=== PATIENT | male | born 1965 | race Caucasian/White ===

== ENCOUNTER 2016-05-11 11:05 | Emergency (ER) | payer MEDICAID ==
--- NOTE | 2016-05-11 11:15 | ER Document Report ---
ED Medical Screen (RME) - General Stated Complaint: STOMACH PAIN Time seen by provider: 11:13 Notes: Patient reports intermittent right-sided abdominal pain for the past month. States he has been having some vomiting, but denies diarrhea, denies fever. Denies dysuria. I have greeted and performed a rapid initial assessment of this patient. A comprehensive ED assessment and evaluation of the patient, analysis of test results and completion of the medical decision making process will be conducted by additional ED providers. TRAVEL OUTSIDE OF THE [place] IN LAST 30 DAYS: No - Related Data Allergies/Adverse Reactions: codeine [Codeine] Allergy (Verified 05/11/16 11:12) Penicillins Allergy (Verified 05/11/16 11:12) Past Medical History Renal/ Medical History: Reports: Hx Kidney Stones GI Medical History: Reports: Hx Cirrhosis, Hx Hepatitis Infectious Medical History: Reports: Hx Hepatitis - Immunizations Hx Diphtheria, Pertussis, Tetanus Vaccination: Yes - 2011 Physical Exam - Abdominal Inspection: Normal Bowel sounds: Normal Tenderness: Tender - right mid abdomen
[2016-05-11 12:03] LABS: ABSOLUTE LYMPHOCYTES (AUTO) 2.4 10^3/uL (0.5-4.7); ABSOLUTE MONOCYTES (AUTO) 0.5 10^3/uL (0.1-1.4); ABSOLUTE NEUT (AUTO) 3.3 10^3/uL (1.7-8.2); BASOPHILS % (AUTO) 0.1 % (0-2); EOSINOPHILS % (AUTO) 0.7 % (0-6); HEMATOCRIT 47.9 % (37.9-51.0); HEMOGLOBIN 16.4 g/dL (13.5-17.0); HGB HCT DIFFERENCE 1.3; LYMPHOCYTES % (AUTO) 38.5 % (13-45); MEAN CORPUSCULAR HEMOGLOBIN 35.2 pg (27.0-33.4); MEAN CORPUSCULAR HGB CONC 34.3 g/dL (32.0-36.0); MEAN CORPUSCULAR VOLUME 103 fl (80-97); MONOCYTES % (AUTO) 8.2 % (3-13); RED BLOOD COUNT 4.67 10^6/uL (4.35-5.55); RED CELL DISTRIBUTION WIDTH 14.1 % (11.5-14.0); SEGMENTED NEUTROPHILS % (AUTO) 52.5 % (42-78); WHITE BLOOD COUNT 6.3 10^3/uL (4.0-10.5)
[2016-05-11 12:31] LABS: ALANINE AMINOTRANSFERASE 43 U/L (21-72); ALBUMIN 4.1 g/dL (3.5-5.0); ALKALINE PHOSPHATASE 74 U/L (38-126); ANION GAP 10 (5-19); ASPARTATE AMINO TRANSFERASE 30 U/L (17-59); BILIRUBIN,TOTAL 0.5 mg/dL (0.2-1.3); BLOOD UREA NITROGEN 13 mg/dL (7-20); CALCIUM 9.6 mg/dL (8.4-10.2); CARBON DIOXIDE 28 mmol/L (22-30); CHLORIDE 102 mmol/L (98-107); CREATININE RESULT 0.82 mg/dL (0.52-1.25); GLUCOSE 80 mg/dL (75-110); LIPASE 164.7 U/L (23-300); POTASSIUM 4.1 mmol/L (3.6-5.0); SODIUM 140.3 mmol/L (137-145); TOTAL PROTEIN 6.9 g/dL (6.3-8.2)
[2016-05-11 12:35] LABS: APPEARANCE,URINE CLEAR; BILIRUBIN,URINE NEGATIVE (NEGATIVE); GLUCOSE, URINE NEGATIVE (NEGATIVE); KETONES,URINE NEGATIVE (NEGATIVE); LEUKOCYTE ESTERASE,URINE NEGATIVE (NEGATIVE); NITRITE,URINE NEGATIVE (NEGATIVE); PROTEIN,URINE NEGATIVE (NEGATIVE); URINE SPECIFIC GRAVITY 1.013; UROBILINOGEN,URINE NEGATIVE mg/dL (<2.0)
--- NOTE | 2016-05-11 14:53 | ER Document Report ---
ED GI/ - General Chief Complaint: Abdominal Pain Stated Complaint: STOMACH PAIN Mode of Arrival: Ambulatory Information source: Patient Notes: Patient reports right lower quadrant abdominal tenderness for the past month has been off and on. Patient states that he also feels bloated for the past month. Patient complains of nausea and vomiting 1 episode today. Patient denies any fever or diarrhea. Patient does report decreased appetite. Patient additionally complains of a 40 pound weight gain over the past year. Patient additionally complains of right plantar foot tenderness. Patient states he is getting ready to start a new job and wants to have his abdominal pain checked out and cleared prior to starting his new job. TRAVEL OUTSIDE OF THE [place] IN LAST 30 DAYS: No - HPI Patient complains to provider of: Abdominal pain, Vomiting, Other - Foot pain. No: Testicular pain - 1 Onset: Other - One month Timing/Duration: Waxing and waning Quality of pain: Sharp Pain Level: 3 Location: RLQ Associated symptoms: Loss of appetite, Nausea, Vomiting - Times one episode. denies: Diarrhea, Dysuria, Fever, Urinary hesitancy, Urinary frequency, Urinary retention, Urinary urgency Exacerbated by: Denies Relieved by: Denies Similar symptoms previously: No Recently seen / treated by doctor: No - Related Data Allergies/Adverse Reactions: codeine [Codeine] Allergy (Verified 05/11/16 11:12) Penicillins Allergy (Verified 05/11/16 11:12) Past Medical History - General Information source: Patient - Social History Smoking Status: Current Every Day Smoker Chew tobacco use (# tins/day): No Frequency of alcohol use: None Drug Abuse: None Occupation: none Family History: Reviewed & Not Pertinent Patient has suicidal ideation: No Patient has homicidal ideation: No Renal/ Medical History: Reports: Hx Kidney Stones. Denies: Hx Peritoneal Dialysis GI Medical History: Reports: Hx Cirrhosis, Hx Hepatitis - Treated with harvoni last year Infectious Medical History: Reports: Hx Hepatitis Past Surgical History: Reports: Other - Liver biopsy - Immunizations Hx Diphtheria, Pertussis, Tetanus Vaccination: Yes - 2011 Review of Systems - Review of Systems Constitutional: No symptoms reported. denies: Fever EENT: No symptoms reported Cardiovascular: No symptoms reported. denies: Chest pain Respiratory: No symptoms reported. denies: Cough, Short of breath Gastrointestinal: Abdominal pain, Vomiting, Poor appetite. denies: Diarrhea Genitourinary: No symptoms reported. denies: Dysuria Male Genitourinary: No symptoms reported Musculoskeletal: No symptoms reported. denies: Back pain Skin: No symptoms reported Hematologic/Lymphatic: No symptoms reported Neurological/Psychological: No symptoms reported Physical Exam - Vital signs Vitals: Temp Pulse Resp BP Pulse Ox 97.6 F 83 18 131/82 H 98 05/11/16 11:14 05/11/16 11:14 05/11/16 11:14 05/11/16 11:14 05/11/16 11:14 - General General appearance: Appears well, Alert In distress: None - HEENT Head: Normocephalic, Atraumatic Eyes: Normal Nasal: Normal Mouth/Lips: Normal Neck: Normal, Supple. No: Lymphadenopathy - Respiratory Respiratory status: No respiratory distress Chest status: Nontender Breath sounds: Normal. No: Rales, Rhonchi, Stridor, Wheezing Chest palpation: Normal - Cardiovascular Rhythm: Regular Heart sounds: S1 appreciated, S2 appreciated Murmur: No - Abdominal Inspection: Normal. No: Obese Distension: No distension Bowel sounds: Normal Tenderness: Tender - Right lower quadrant Organomegaly: No organomegaly - Back Back: Normal, Nontender. No: CVA tenderness - Extremities General upper extremity: Normal inspection, Normal ROM General lower extremity: Normal inspection, Tender - Mild tenderness along plantar surface of her right foot, Normal ROM Foot: Tender - Plantar surface of right foot under lying fifth metatarsal, normal skin color and temperature overlying foot - Neurological Neuro grossly intact: Yes Cognition: Normal [place] Coma Scale Eye Opening: Spontaneous [place] Coma Scale Verbal: Oriented [place] Coma Scale Motor: Obeys Commands [place] Coma Scale Total: 15 - Skin Skin Temperature: Warm Skin Moisture: Dry Skin Color: Normal Course - Re-evaluation Re-evalutation: 05/11/16 14:51 Patient declines stain for test results and states that he has to go home and take care of his daughter. Patient states that he plans to see his primary doctor in 3 days. Patient states that he cannot stay here laying in the bed because he has concerns about jaky MRSA. Attempted to reassure patient that rooms are clean the prior to putting patient's in rooms. Patient insists that he needs to go take care of his dog and states that he will return if he has any new or worsening symptoms. The patient has decided not to proceed with further recommended testing or treatment to determine the cause of her symptoms. The risk and alternatives to the recommendation were discussed the patient voiced understanding. The patient appears clinically to have the capacity to make this decision. The patient was instructed that they could return to the ER at any time to complete the testing or treatment. - Vital Signs Vital signs: Temp Pulse Resp BP Pulse Ox 98.6 F 65 14 122/71 100 05/11/16 14:56 05/11/16 14:56 05/11/16 14:56 05/11/16 14:56 05/11/16 14:56 - Laboratory Result Diagrams: 05/11/16 11:38 05/11/16 11:38 Laboratory results interpreted by me: 05/11/16 05/11/16 11:38 11:38 MCV 103 H MCH 35.2 H RDW 14.1 H Plt Count 149 L Ammonia < 8.7 L Discharge - Discharge Clinical Impression: Tinea cruris Abdominal pain Qualifiers: Abdominal location: right lower quadrant Qualified Code(s): R10.31 - Right lower quadrant pain Disposition: AGAINST MEDICAL ADVICE Instructions: Abdominal Pain ([facility]), Ringworm (Tinea Corporis) ([facility]) Additional Instructions: Return immediately for any new or worsening symptoms or if you would like to continue with your evaluation Followup with your primary care provider, call tomorrow to make a followup appointment Prescriptions: Ketoconazole [Nizoral] 1 applic TP DAILY #30 [email or web address]. Referrals: MANDO AYOUB MD [ACTIVE STAFF] - Follow up as needed
[2016-05-11 14:57] VITALS: BP 122/71
== END 2016-05-11 14:59 | disposition left against medical advice (07) ==
LOC: ER 11:05
DX: R10.31 Right lower quadrant pain (principal); B35.6 Tinea cruris; R11.2 Nausea with vomiting, unspecified; R63.0 Anorexia; R14.0 Abdominal distension (gaseous); R63.5 Abnormal weight gain; Z68.24 Body mass index [BMI] 24.0-24.9, adult; F17.200 Nicotine dependence, unspecified, uncomplicated; Z88.5 Allergy status to narcotic agent; Z88.0 Allergy status to penicillin; Z87.442 Personal history of urinary calculi; Z87.19 Personal history of other diseases of the digestive system; Z53.29 Procedure and treatment not carried out because of patient's decision for other reasons
CPT/HCPCS: 36415; 74022; 74176; 80053; 81001; 82140; 83690; 85025; 99284

== ENCOUNTER → 2016-05-15 | Outpatient (CLI) | payer MEDICAID ==
[2016-05-15 11:49] LABS: ABSOLUTE LYMPHOCYTES (AUTO) 2.4 10^3/uL (0.5-4.7); ABSOLUTE MONOCYTES (AUTO) 0.5 10^3/uL (0.1-1.4); ABSOLUTE NEUT (AUTO) 3.3 10^3/uL (1.7-8.2); BASOPHILS % (AUTO) 0.2 % (0-2); EOSINOPHILS % (AUTO) 0.5 % (0-6); HEMATOCRIT 47.5 % (37.9-51.0); HGB HCT DIFFERENCE 0.5; LYMPHOCYTES % (AUTO) 38.5 % (13-45); MEAN CORPUSCULAR HEMOGLOBIN 34.7 pg (27.0-33.4); MEAN CORPUSCULAR HGB CONC 33.8 g/dL (32.0-36.0); MEAN CORPUSCULAR VOLUME 103 fl (80-97); MONOCYTES % (AUTO) 7.4 % (3-13); RED BLOOD COUNT 4.62 10^6/uL (4.35-5.55); RED CELL DISTRIBUTION WIDTH 13.6 % (11.5-14.0); SEGMENTED NEUTROPHILS % (AUTO) 53.4 % (42-78); WHITE BLOOD COUNT 6.2 10^3/uL (4.0-10.5)
[2016-05-15 12:05] LABS: ALANINE AMINOTRANSFERASE 40 U/L (21-72); ALBUMIN 4.1 g/dL (3.5-5.0); ALKALINE PHOSPHATASE 70 U/L (38-126); ANION GAP 10 (5-19); ASPARTATE AMINO TRANSFERASE 27 U/L (17-59); BILIRUBIN,TOTAL 0.6 mg/dL (0.2-1.3); BLOOD UREA NITROGEN 11 mg/dL (7-20); CALCIUM 9.3 mg/dL (8.4-10.2); CARBON DIOXIDE 27 mmol/L (22-30); CHLORIDE 103 mmol/L (98-107); CREATININE RESULT 0.84 mg/dL (0.52-1.25); GLUCOSE 80 mg/dL (75-110); POTASSIUM 4.5 mmol/L (3.6-5.0); SODIUM 140.3 mmol/L (137-145); TOTAL PROTEIN 6.9 g/dL (6.3-8.2)
== END ==
LOC: OD 10:40
PROVIDERS: ATTEND Family Medicine Geriatric Medicine
DX: B19.20 Unspecified viral hepatitis C without hepatic coma (principal); J44.9 Chronic obstructive pulmonary disease, unspecified; Z79.899 Other long term (current) drug therapy
CPT/HCPCS: 36415; 80053; 85025

== ENCOUNTER → 2016-06-16 | Outpatient (CLI) | payer MEDICAID | LOC: OD 14:45 | PROVIDERS: ATTEND Family Medicine Geriatric Medicine | DX: R10.32 Left lower quadrant pain (principal) | CPT/HCPCS: 74022 ==

== ENCOUNTER → 2016-06-16 | Outpatient (CLI) | payer MEDICAID ==
[2016-06-16 16:12] LABS: APPEARANCE,URINE CLEAR; BILIRUBIN,URINE NEGATIVE (NEGATIVE); GLUCOSE, URINE NEGATIVE (NEGATIVE); KETONES,URINE NEGATIVE (NEGATIVE); LEUKOCYTE ESTERASE,URINE NEGATIVE (NEGATIVE); NITRITE,URINE NEGATIVE (NEGATIVE); PROTEIN,URINE NEGATIVE (NEGATIVE); URINE SPECIFIC GRAVITY 1.021; UROBILINOGEN,URINE NEGATIVE mg/dL (<2.0)
[2016-06-16 18:23] LABS: FOLATE 8.62 ng/mL (>2.76)
[2016-06-19 07:33] LABS: HOMOCYST(E)INE PLASMA 14.4 umol/L (0.0-15.0)
== END ==
LOC: OD 15:00
PROVIDERS: ATTEND Family Medicine Geriatric Medicine
DX: D53.9 Nutritional anemia, unspecified (principal); Z79.899 Other long term (current) drug therapy; N39.0 Urinary tract infection, site not specified
CPT/HCPCS: 36415; 81001; 82607; 82746; 83090; 83921; 84443; 87086

== ENCOUNTER → 2016-07-31 | Outpatient (CLI) | payer MEDICAID ==
--- NOTE | 2016-07-31 15:05 | RADIOLOGY REPORT (SQ) ---
EXAM DESCRIPTION: CT ABD/PELVIS COMBO COMPLETED DATE/TIME: 07/31/2016 2:28 pm REASON FOR STUDY: OTHER MICROSCOPIC HEMATURIA R31.29 OTHER MICROSCOPIC HEMATURIA N40.1 BENIGN PROS TATIC HYPERPLASIA WITH LOWER URINARY TRACT COMPARISON: None. TECHNIQUE: CT scan of the abdomen and pelvis performed with and without intravenous contrast, and wi thout oral contrast. Contrasted imaging performed helical scanning technique and dynamic intravenous contrast injection. Images reviewed with lung, soft tissue, and bone windows. Reconstructed coronal a nd sagittal MPR images reviewed. Delayed images for evaluation of the urinary system also acquired. A ll images stored on PACS. All CT scanners at this facility use dose modulation, iterative reconstruction, and/or weight based d osing when appropriate to reduce radiation dose to as low as reasonably achievable (ALARA). [facility]: Dose Right [facility]: CareDose [facility]: Dose Right [facility]: Teradose 4D [facility]: Bonfaire CONTRAST TYPE AND DOSE: 74 mL Isovue 370- low osmolar. RENAL FUNCTION: Creatinine 0.8 RADIATION DOSE: 26.95 mGy. LIMITATIONS: None. FINDINGS: NON-CONTRASTED IMAGING: No significant renal or bladder calcifications. No other significa nt organ calcifications. POST-CONTRASTED IMAGING: LOWER CHEST: No significant findings. No nodules or infiltrates. LIVER: Normal size. No masses or dilated ducts. SPLEEN: Normal size. No focal lesions. PANCREAS: No masses. No significant calcifications. No adjacent inflammation or peripancreatic fluid collections. Pancreatic duct not dilated. GALLBLADDER: No identified stones by CT criteria. No inflammatory changes to suggest cholecystitis. ADRENAL GLANDS: No significant masses or asymmetry. RIGHT KIDNEY AND URETER: No solid masses. No significant calcifications. No hydronephrosis or hyd roureter. LEFT KIDNEY AND URETER: No solid masses. No significant calcifications. No hydronephrosis or hydr oureter. AORTA AND VESSELS: No aneurysm. No dissection. Renal arteries, SMA, celiac without stenosis. RETROPERITONEUM: No retroperitoneal adenopathy, hemorrhage or masses. BOWEL AND PERITONEAL CAVITY: No masses or inflammatory changes. No free fluid or peritoneal masses. Occasional sigmoid diverticula. APPENDIX: Normal. PELVIS: The urinary bladder is normal. Prostate gland and seminal vesicles are normal. There is no free fluid. ABDOMINAL WALL: No masses. No hernias. BONES: No significant or acute findings. OTHER: No other significant finding. IMPRESSION: Minimal sigmoid diverticulosis with no acute inflammatory changes. There are no finding s in the abdomen or pelvis that explain the patient's microscopic hematuria. TECHNICAL DOCUMENTATION: JOB ID: [id number] Quality ID # [id number]: Final reports with documentation of one or more dose reduction techniques (e.g., Au tomated exposure control, adjustment of the mA and/or kV according to patient size, use of iterative reconstruction technique) 2010 [employer]- All Rights Reserved
== END ==
LOC: RAD 13:22
PROVIDERS: ATTEND Family Medicine Geriatric Medicine
DX: N40.1 Benign prostatic hyperplasia with lower urinary tract symptoms (principal); R31.29 Other microscopic hematuria
CPT/HCPCS: 74178; 82565

== ENCOUNTER 2016-12-14 13:45 | Emergency (ER) | payer MEDICAID ==
[2016-12-14 13:54] VITALS: BP 119/81
--- NOTE | 2016-12-14 14:18 | ER Document Report ---
ED General - General Chief Complaint: Skin Sore(s) Stated Complaint: POSSIBLE ABSCESS ON FACE Time Seen by Provider: 12/14/16 14:09 Mode of Arrival: Ambulatory Information source: Patient, Relative Notes: Patient is a 51-year-old white male comes to emergency room with a lesion on his left upper lip underneath his mustache. Patient states that his been there off and on for the past 2 months and seems to materialize when he gets stressed acidic type foods. 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 Patient denies any other medical problems. TRAVEL OUTSIDE OF THE [place] IN LAST 30 DAYS: No - HPI Onset: Other - Off and on for the past month and a half Onset/Duration: Intermittent, Waxing and waning Quality of pain: Achy, Throbbing Severity: Moderate Pain Level: 2 Associated symptoms: None Exacerbated by: Denies, Other - Stress/acidic food Relieved by: Denies Similar symptoms previously: No Recently seen / treated by doctor: No - Related Data Allergies/Adverse Reactions: codeine [Codeine] Allergy (Verified 12/14/16 13:53) Penicillins Allergy (Verified 12/14/16 13:53) Past Medical History - General Information source: Patient, Relative - Social History Smoking Status: Current Every Day Smoker Cigarette use (# per day): Yes Lives with: Family Family History: Reviewed & Not Pertinent Patient has suicidal ideation: No Patient has homicidal ideation: No - Medical History Medical History: Negative - Past Medical History Cardiac Medical History: Reports: None Pulmonary Medical History: Reports: None EENT Medical History: Reports: None Neurological Medical History: Reports: None Renal/ Medical History: Reports: None, Hx Kidney Stones. Denies: Hx Peritoneal Dialysis Malignancy Medical History: Reports None GI Medical History: Reports: Hx Cirrhosis, Hx Hepatitis Musculoskeltal Medical History: Reports None Skin Medical History: Reports None Psychiatric Medical History: Reports: None Traumatic Medical History: Reports: None Infectious Medical History: Reports: None, Hx Hepatitis Surgical Hx: Negative Past Surgical History: Reports: None, Other - Liver biopsy - Immunizations Hx Diphtheria, Pertussis, Tetanus Vaccination: Yes - 2011 Review of Systems - Review of Systems Constitutional: No symptoms reported EENT: No symptoms reported Cardiovascular: No symptoms reported Respiratory: No symptoms reported Gastrointestinal: No symptoms reported Genitourinary: No symptoms reported Male Genitourinary: No symptoms reported Musculoskeletal: No symptoms reported Skin: Lesions, Other - Examination patient's lesion of complaint shows it to be in the left upper lip right at the vermilion border covered up by his mustache. Examination shows it to be a scaly dried area currently although there is some numbness and tingling on palpation per patient. The under the lip slightly discolored as well with more tenderness to palpation. Presentation is that of a herpetic lesion. There is also moderate erythema around it indicating possibly a secondary infection. Neurological/Psychological: No symptoms reported -: Yes All other systems reviewed and negative Physical Exam - Vital signs Vitals: Temp Pulse Resp BP Pulse Ox 98.0 F 95 18 119/81 95 12/14/16 13:49 12/14/16 13:49 12/14/16 13:49 12/14/16 13:49 12/14/16 13:49 - General General appearance: Appears well - Respiratory Respiratory status: No respiratory distress Chest status: Nontender Breath sounds: Normal. No: Rales, Rhonchi, Stridor, Wheezing Chest palpation: Normal - Cardiovascular Rhythm: Regular Heart sounds: Normal auscultation Murmur: No - Neurological Cognition: Normal Orientation: AAOx4 Luis Coma Scale Eye Opening: Spontaneous [place] Coma Scale Verbal: Oriented Luis Coma Scale Motor: Obeys Commands Luis Coma Scale Total: 15 - Skin Skin Temperature: Warm Skin irregularity: Lesion, other - Area as escribed above. It is on the left upper lip near and into the vermilion boarder. It is dry and crusty currently. Under the lip trhere is a faded tender pustule/ Resembling Herpes Labialis. There is also moderate erythema surroundeng the e lesion. Apparetly a secondary cellulitis . Location of irregularity: Face, Other - Upper lip Character of irregularity: Symmetric, Papular Irregularity with: Tenderness, Warmth Course - Vital Signs Vital signs: Temp Pulse Resp BP Pulse Ox 98.0 F 95 18 119/81 95 12/14/16 13:49 12/14/16 13:49 12/14/16 13:49 12/14/16 13:49 12/14/16 13:49 Discharge - Discharge Clinical Impression: Herpes labialis, Cellulitis of lip Condition: Stable Disposition: HOME, SELF-CARE Instructions: Viral Syndrome ([facility]) Additional Instructions: Herpes Simplex You have been diagnosed as having a herpes virus infection. The herpes ( "cold sore") virus usually infects the areas around the mouth. However, it can cause infection on any skin surface. It's particularly dangerous if infection occurs in the eye. On the initial infection, herpes blisters erupt over a large area. There is usually fever and aching. This infection takes about 14 days to resolve. After the initial infection, herpes sores can erupt on small areas (usually the lips), then heal in about a week. Sunburn, fever, local irritation, or even emotions can provoke a "fever blister" attack of herpes. Initial herpes infections can be treated with medication if severe. Subsequent attacks are usually given only local care to reduce symptoms; however , the physician may decide to prescribe anti-viral medication if your case warrants it. Call the doctor if you are worsening in any way.Cellulitis You have an infection of your skin and underlying soft tissues called cellulitis. This is due to bacteria, which can enter through any break in the skin, or even through an irritated hair follicle. Untreated, cellulitis will usually worsen. Antibiotics are required. Usually, warm packs or warm soaks, and elevation of the infected area are recommended. You should start getting better within 24 to 36 hours. Most infections respond quickly to the right medication. Follow-up care is important, however, to check for abscess (boil) formation, unsuspected foreign body, or resistant infection. If you develop fever, chills, or if the area of infection is becoming rapidly more swollen or painful, call the doctor at once. Home and rest. Medications prescribed. May also get some [id number] Blistex or Aquaphor to use 3-4 times a day to keep it moist. Should you have any concerns or problems after taking the medication or the lesion does not disappear completely return to ER for recheck or follow-up with your primary care provider for further intervention. Prescriptions: Acyclovir 800 mg PO 5XD #35 tablet Clindamycin HCl [Cleocin 300 mg Capsule] 300 mg PO QID #28 capsule
== END 2016-12-14 15:26 | disposition home or self-care (01) ==
LOC: ER 13:45
DX: K13.0 Diseases of lips (principal); B00.1 Herpesviral vesicular dermatitis; F17.210 Nicotine dependence, cigarettes, uncomplicated; Z87.442 Personal history of urinary calculi; Z88.6 Allergy status to analgesic agent; Z88.0 Allergy status to penicillin
CPT/HCPCS: 99283